=== PATIENT | female | born 1965 | race Caucasian/White ===

== ENCOUNTER 2020-06-16 09:04 | Outpatient (CLI) | payer OTHER, SELFPAY ==
--- NOTE | 2020-06-16 12:25 | WPDNEUROLOGY ---
Neurology EEG Report General Information Date of Study: 06/16/20 TEST EEG DIAGNOSIS Seizures CONDITION OF RECORDING awake drowsy and sleep EEG NUMBER [id number] CLINICAL HISTORY patient reported that she has had several episodes of convulsion with loss of consciousness EEG DESCRIPTION basic resting occipital frequency consists of moderate amount of well-organized low to medium voltage 8 to 10 hertz per 2nd alpha admixed with low-voltage 15 to 18 hertz per 2nd beta activity. During drowsiness low-voltage beta activity seen diffusely admixed with waxing and waning alpha activity. Bilateral sleep activity seen during sleep. Photic stimulation produced normal drive. Hyperventilation not done. Non paroxysmal. Nonfocal. Nonlateralizing. IMPRESSION Normal EEG during wakefulness drowsiness and sleep
== END 2020-06-16 09:05 | disposition home or self-care (01) ==
PROVIDERS: Visit Provider Psychiatry & Neurology Neurology
DX: R56.9 Unspecified convulsions (principal)
CPT/HCPCS: 95816

== ENCOUNTER 2023-11-25 13:20 | Outpatient (CLI) | payer OTHER, SELFPAY ==
--- NOTE | ~2023-11-25 | CT_ITS ---
EXAMINATION: CT lung screening DATE: 11/25/2023 13:52 INDICATION: Personal history nicotine dependence, current smoker with 40 to pack year history TECHNIQUE: Computed tomography (CT) of the chest was performed without intravenous contrast. The dose -length product (DLP) was 78.70 mGy-cm. Automated exposure control and iterative reconstruction techn [employer] were employed. COMPARISON: 06/19/2008 FINDINGS: There is mild emphysema. No suspicious pulmonary nodules are identified. The lungs are free of acute opacities. No pleural effusion or pneumothorax. No pathologically enlarged thoracic lymph n odes are identified. The heart size is normal. There is calcified coronary artery atherosclerosis. Th ere is mild thoracic spondylosis. IMPRESSION: 1. Lung-RADS category 1: Negative. Continue annual screening with noncontrast low-dose chest CT in 12 months. Reviewed, dictated and finalized at location F. IMPRESSION: 1. Lung-RADS category 1: Negative. Continue annual screening with noncontrast l ow-dose chest CT in 12 months.
== END 2023-11-25 13:21 | disposition home or self-care (01) ==
LOC: ANHIMG 13:25
PROVIDERS: Visit Provider Internal Medicine Pulmonary Disease
DX: Z12.2 Encounter for screening for malignant neoplasm of respiratory organs (principal); Z87.891 Personal history of nicotine dependence
CPT/HCPCS: 71271